=== PATIENT | male | born 1945 | race Caucasian/White ===

== ENCOUNTER → 2016-12-06 | Outpatient (CLI) | payer OTHER | LOC: BRMIMAGING 13:41 | PROVIDERS: ATTEND Registered Nurse | DX: S32.402A Unspecified fracture of left acetabulum, initial encounter for closed fracture (principal) | CPT/HCPCS: 73502-PO ==

== ENCOUNTER → 2018-01-05 | Outpatient (CLI) | payer OTHER | LOC: BRMIMAGING 11:17 | PROVIDERS: ATTEND Physician Assistant | DX: J98.4 Other disorders of lung (principal); J84.9 Interstitial pulmonary disease, unspecified | CPT/HCPCS: 71046-PO ==